=== PATIENT | female | born 1990 | race African-American/Black ===

== ENCOUNTER 2021-04-07 14:01 | Emergency (ER) | payer MEDICAID ==
[~2021-04-07] VITALS: Ht 165.1 cm; Wt 91.0 kg
[2021-04-07 15:15] VITALS: BP 119/68
[2021-04-07] MEDS ORDERED: IPRATROPIUM BROMIDE (0.02%) 0.5MG/2.5ML NEB HHN STA (15:43)
[2021-04-07] MEDS: ALBUTEROL (0.083%) 2.5MG/3ML NEB HHN SCH (17:40)
[2021-04-07] MEDS ORDERED: ALBU6.7H9 INH (19:01)
== END 2021-04-07 19:21 | disposition home or self-care (01) ==
LOC: ER 14:01
DX: J45.901 Unspecified asthma with (acute) exacerbation (principal); B34.9 Viral infection, unspecified; Z20.822 Contact with and (suspected) exposure to COVID-19; I51.9 Heart disease, unspecified; Z79.899 Other long term (current) drug therapy
CPT/HCPCS: 71045; 87426; 93005; 94644; 99285; Z7610